=== PATIENT | female | born 1975 | race Caucasian/White ===

== ENCOUNTER 2020-02-05 00:28 | Emergency (ER) | payer SELFPAY ==
[~2020-02-05] VITALS: Ht 160 cm; Wt 63.6 kg
[2020-02-05 00:36] VITALS: BP 143/99
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
[2020-02-05] MEDS ORDERED: TETANUS AND DIPHTHERIA TOX/PF 0.5 ML DISP.SYRIN. VAX IM ONE (01:30)
== END 2020-02-05 02:26 | disposition home or self-care (01) ==
LOC: ER 00:28
DX: S60.811A Abrasion of right wrist, initial encounter (principal); F32.9 Major depressive disorder, single episode, unspecified; F98.8 Other specified behavioral and emotional disorders with onset usually occurring in childhood and adolescence; X83.8XXA Intentional self-harm by other specified means, initial encounter; Y93.89 Activity, other specified; Y92.89 Other specified places as the place of occurrence of the external cause; Y99.8 Other external cause status
CPT/HCPCS: 90471; 90714; 99283; 99284